=== PATIENT | male | born 1945 | race Two or more races ===

== ENCOUNTER 2024-11-12 13:11 | Emergency (ER) | payer OTHER ==
[~2024-11-12] VITALS: Ht 188 cm; Wt 90.7 kg
[2024-11-12 14:03] VITALS: BP 145/76; O2SAT 98
[2024-11-12] MEDS ORDERED: TETANUS DIPHTHERIA TOX. ADSOR 5 ML VIAL IM ONE (14:27)
[2024-11-12] MEDS ORDERED: CEFTRIAXONE SODIUM 1,000 MG VIAL ONE (14:48)
[2024-11-12] MEDS ORDERED: CEFTRIAXONE SODIUM 1,000 MG VIAL IV STA (14:51)
[2024-11-12] MEDS ORDERED: TETANUS & DIPHTHERIA TOX,ADULT 0.5 ML VIAL IM STA (14:51)
== END 2024-11-12 16:01 | disposition home or self-care (01) ==
LOC: EDBD 13:13 → ER 13:13
DX: S01.122A Laceration with foreign body of left eyelid and periocular area, initial encounter (principal); W18.39XA Other fall on same level, initial encounter; Y93.89 Activity, other specified; Y92.89 Other specified places as the place of occurrence of the external cause
CPT/HCPCS: 12014; 70200; 90471; 90714; 96365; 99283; J0696; J1670